=== PATIENT | male | born 1985 | race Hispanic/Latino ===

== ENCOUNTER 2018-03-23 08:55 | Emergency (ER) | payer SELFPAY ==
[2018-03-23] MEDS ORDERED: TETANUS/DIPHTHERIA TOXOID [ADULT] 0.5 ML VIAL IM ONE (09:21)
[2018-03-23] MEDS ORDERED: ONDANSETRON ODT 4 MG TAB ONE (09:31)
== END 2018-03-23 10:10 | disposition home or self-care (01) ==
LOC: EDH 08:55
DX: S06.0X0A Concussion without loss of consciousness, initial encounter (principal); S01.01XA Laceration without foreign body of scalp, initial encounter; Z72.0 Tobacco use; W22.8XXA Striking against or struck by other objects, initial encounter; Y93.89 Activity, other specified; Y92.098 Other place in other non-institutional residence as the place of occurrence of the external cause; Y99.8 Other external cause status
CPT/HCPCS: 90471; 90714

== ENCOUNTER 2018-10-22 23:55 | Emergency (ER) | payer OTHER | END 2018-10-23 00:16 | LOC: EDH 23:55 | DX: Z02.83 Encounter for blood-alcohol and blood-drug test (principal); Z72.0 Tobacco use; F12.10 Cannabis abuse, uncomplicated; F14.10 Cocaine abuse, uncomplicated ==